=== PATIENT | female | born 1985 | race African-American/Black ===

== ENCOUNTER 2018-01-18 12:20 | Emergency (ER) | payer SELFPAY ==
[~2018-01-18] VITALS: Ht 162.6 cm; Wt 122.7 kg
[2018-01-18 12:26] VITALS: BP 117/82
[2018-01-18] MEDS ORDERED: PRENATAL MVI (14:01)
[2018-01-18 14:02] LABS: COLLECTION METHOD CLEAN CATCH
[2018-01-18 14:15] LABS: MUCOUS Present /lpf; PH 6 (5-8); SQUAMOUS EPITHELIAL 20-50 /hpf; URINE APPEARANCE Cloudy; URINE BACTERIA Rare /hpf; URINE BILIRUBIN Negative (NEGATIVE); URINE BLOOD Negative (NEGATIVE); URINE COLOR Amber; URINE GLUCOSE Negative (NEGATIVE); URINE KETONE Negative (NEGATIVE); URINE LEUKOCYTE ESTERASE 3+ (NEGATIVE); URINE NITRATE Negative (NEGATIVE); URINE PROTEIN(semi-quant) 1+ (NEGATIVE)
[2018-01-18 14:15] LABS: BASO % 0.3 % (0.0-2.0); EOS # 0.1 (0.0-0.7); EOS % 0.7 % (0-4.0); GRAN # 4.8 (1.4-6.5); GRAN % 68.1 % (42.2-75.2); LYMPH # 1.7 (1.2-3.4); LYMPH % 24.9 % (20.0-51.0); MEAN CELL VOLUME 95 fl (80.0-100.0); MEAN CORPUSCULAR HGB CONC 33 g/dl (33.0-37.0); MEAN PLATELET VOLUME 9.5 fl (7.4-10.4); MONO # 0.4 (0.1-0.6); MONO % 5.4 % (1.7-9.3); PLATELET COUNT 203 K/mm3 (130-400); RED BLOOD COUNT 3.14 M/mm3 (4.10-5.30); REDCELL DISTRIBUTION WIDTH-CV 14.2 % (11.5-14.5)
[2018-01-18 14:18] LABS: HEMATOCRIT 29.7 % (37.0-47.0); HEMOGLOBIN 9.7 g/dl (12.5-16.0); MEAN CORPUSCULAR HEMOGLOBIN 31 pg (27.0-31.0)
[2018-01-18 14:36] LABS: ALBUMIN 3.4 gm/dL (3.5-5.0); BILIRUBIN,TOTAL 0.3 mg/dL (0.0-1.0); CALCIUM 8.6 mg/dL (8.4-10.2); CREATININE, serum 0.56 mg/dL (0.52-1.25); POTASSIUM 4.1 mmol/L (3.4-5.0); TOTAL PROTEIN 7.1 gm/dL (6.4-8.2)
[2018-01-18] MEDS ORDERED: MACROBID 1100 MG/CAP PO (15:00)
[2018-01-18 15:26] VITALS: PULSE 86
== END 2018-01-18 15:27 | disposition home or self-care (01) ==
LOC: COL.ER 12:20
PROVIDERS: Emergency Medicine
DX: O23.41 Unspecified infection of urinary tract in pregnancy, first trimester (principal); Z3A.00 Weeks of gestation of pregnancy not specified

== ENCOUNTER 2018-02-24 06:58 | Inpatient (IN) | payer MEDICAID ==
[~2018-02-24] VITALS: Ht 162.6 cm; Wt 140.5 kg
[2018-02-24] VITALS (35 sets, daily range): BP systolic 93–139; BP diastolic 43–95; PULSE 71–102; TEMP 97.2–97.8
[~2018-02-24 06:58] MED LIST: MACROBID 1100 MG/CAP PO; PRENATAL MVI
[2018-02-24 08:44] LABS: BASO % 0.4 % (0.0-2.0); EOS # 0.1 (0.0-0.7); EOS % 1.2 % (0-4.0); GRAN # 5.7 (1.4-6.5); GRAN % 71.1 % (42.2-75.2); HEMATOCRIT 30.9 % (37.0-47.0); HEMOGLOBIN 9.8 g/dl (12.5-16.0); LYMPH # 1.7 (1.2-3.4); LYMPH % 21.2 % (20.0-51.0); MEAN CELL VOLUME 94 fl (80.0-100.0); MEAN CORPUSCULAR HEMOGLOBIN 30 pg (27.0-31.0); MEAN CORPUSCULAR HGB CONC 32 g/dl (33.0-37.0); MEAN PLATELET VOLUME 9.8 fl (7.4-10.4); MONO # 0.4 (0.1-0.6); MONO % 5.5 % (1.7-9.3); PLATELET COUNT 198 K/mm3 (130-400); REDCELL DISTRIBUTION WIDTH-CV 14.2 % (11.5-14.5)
[2018-02-24 09:28] LABS: COLLECTION METHOD CLEAN CATCH
[2018-02-24 09:45] LABS: MUCOUS Present /lpf; PH 7 (5-8); URINE APPEARANCE Hazy; URINE BACTERIA Many /hpf; URINE BILIRUBIN Negative (NEGATIVE); URINE BLOOD 1+ (NEGATIVE); URINE COLOR Yellow; URINE GLUCOSE Negative (NEGATIVE); URINE KETONE Negative (NEGATIVE); URINE LEUKOCYTE ESTERASE Negative (NEGATIVE); URINE NITRATE Negative (NEGATIVE); URINE PROTEIN(semi-quant) Negative (NEGATIVE); URINE RBC 0-2 /hpf; URINE UROBILINOGEN Negative (NEGATIVE)
[2018-02-24 10:52] LABS: TRICYCLIC ANTIDEPRESS URINE NEGATIVE
[2018-02-25 04:15] VITALS: BP 92/41; PULSE 74; TEMP 98.2
[2018-02-25 07:45] VITALS: BP 116/79; PULSE 79; TEMP 98.2
[2018-02-25 13:00] VITALS: BP 131/46; PULSE 88; TEMP 98.9
[2018-02-25 16:00] VITALS: BP 115/62; PULSE 77; TEMP 97
[2018-02-25 20:30] VITALS: BP 108/64; PULSE 78; TEMP 97.9
[2018-02-26] MEDS ORDERED: MOTRIN 800800 MG/TAB PO (07:02)
[2018-02-26 07:10] VITALS: BP 97/40; PULSE 63; TEMP 98.1
[2018-02-26] MEDS ORDERED: IBU800 M1 PO (08:45)
== END 2018-02-26 11:40 | disposition home or self-care (01) | DRG 806 ==
LOC: LDR 06:58 → OB 07:14 → LDR 07:14 → OB 19:30
PROVIDERS: Student in an Organized Health Care Education/Training Program
PROC: 10E0XZZ Delivery of Products of Conception, External Approach (ICD-10-PCS; principal; 2018-02-24)
PROC: 10907ZC Drainage of Amniotic Fluid, Therapeutic from Products of Conception, Via Natural or Artificial Opening (ICD-10-PCS; 2018-02-24)
PROC: 3E033VJ Introduction of Other Hormone into Peripheral Vein, Percutaneous Approach (ICD-10-PCS; 2018-02-24)
DX: O99.214 Obesity complicating childbirth (principal); O98.32 Other infections with a predominantly sexual mode of transmission complicating childbirth; Z37.0 Single live birth; A56.02 Chlamydial vulvovaginitis; Z3A.40 40 weeks gestation of pregnancy; O71.82 Other specified trauma to perineum and vulva; O76 Abnormality in fetal heart rate and rhythm complicating labor and delivery; E66.01 Morbid (severe) obesity due to excess calories; B96.20 Unspecified Escherichia coli [E. coli] as the cause of diseases classified elsewhere; O99.02 Anemia complicating childbirth
CPT/HCPCS: J2590; J2795; J7120

== ENCOUNTER 2020-01-09 11:51 | Emergency (ER) | payer SELFPAY ==
[~2020-01-09] VITALS: Ht 162.6 cm; Wt 127.3 kg
[~2020-01-09 11:51] MED LIST changes: +IBU800 M1 PO; +MOTRIN 800800 MG/TAB PO
[2020-01-09 11:54] VITALS: BP 123/71; TEMP 98.4
[2020-01-09 13:02] LABS: HEMATOCRIT 38.3 % (37.0-47.0); HEMOGLOBIN 12.2 g/dl (12.5-16.0); MEAN CELL VOLUME 95 fl (80.0-100.0); MEAN CORPUSCULAR HEMOGLOBIN 30 pg (27.0-31.0); MEAN CORPUSCULAR HGB CONC 32 g/dl (33.0-37.0); MEAN PLATELET VOLUME 9.5 fl (7.4-10.4); PLATELET COUNT 229 K/mm3 (130-400); RED BLOOD COUNT 4.05 M/mm3 (4.10-5.30); REDCELL DISTRIBUTION WIDTH-CV 13.8 % (11.5-14.5)
[2020-01-09 13:13] LABS: ALANINE AMINOTRANSFERASE 10 U/L (4-34); ALBUMIN 4.1 gm/dL (3.5-5.0); ALKALINE PHOSPHATASE 60 U/L (50-136); ANION GAP 8 mmol/L (7-16); AST,SGOT 20 U/L (15-37); BILIRUBIN,TOTAL 0.5 mg/dL (0.0-1.0); BLOOD UREA NITROGEN 9 mg/dL (7-17); CALCIUM 8.4 mg/dL (8.4-10.2); CARBON DIOXIDE 25 mmol/L (22-30); CHLORIDE 107 mmol/L (98-107); CREATININE, serum 0.77 (0.52-1.25); GLUCOSE 91 mg/dL (74-106); POTASSIUM 4.3 mmol/L (3.4-5.0); SODIUM 139 mmol/L (137-145); TOTAL PROTEIN 7.7 gm/dL (6.4-8.2)
[2020-01-09 13:14] LABS: C-REACTIVE PROTEIN < 0.5 mg/dL (0.0-0.9)
[2020-01-09 14:21] LABS: LYMPHOCYTE 57 % (20.0-51.0); NEUTROPHILS 42 % (42.0-75.2); PLATELET ESTIMATE NORMAL (NORMAL)
[2020-01-09 14:35] VITALS: PULSE 60
== END 2020-01-09 14:35 | disposition home or self-care (01) ==
LOC: COL.ER 11:51
PROVIDERS: Family Medicine
DX: J06.9 Acute upper respiratory infection, unspecified (principal)
CPT/HCPCS: J1100

== ENCOUNTER 2020-03-31 18:56 | Emergency (ER) | payer SELFPAY ==
[~2020-03-31] VITALS: Ht 162.6 cm; Wt 127.3 kg
[2020-03-31 19:03] VITALS: TEMP 98.4
[2020-03-31] MEDS ORDERED: BACTRIM DS 8001 TAB PO (20:18)
[2020-03-31 20:54] VITALS: BP 115/62; PULSE 82
== END 2020-03-31 20:50 | disposition home or self-care (01) ==
LOC: COL.ER 18:56
DX: R22.31 Localized swelling, mass and lump, right upper limb (principal); Z79.1 Long term (current) use of non-steroidal anti-inflammatories (NSAID)